=== PATIENT | male | born 1950 | race Caucasian/White ===

== ENCOUNTER 2016-08-19 10:12 | Inpatient (IN) | payer MEDICARE, BC ==
[2016-08-19] VITALS (13 sets, daily range): BP systolic 126–180; BP diastolic 59–95; PULSE 65–101; RESP 16–22; TEMP 97.3–97.9; O2SAT 93–100
[~2016-08-19 10:12] MED LIST: AMBI10TA PO; ATOR20TA42 PO; CARV3.125 PO; COUM5TAB PO; LASI20TA PO; LISI2.5T55 PO; SPIR25 PO; TAB-TAB PO
[2016-08-19] MEDS ORDERED: SODIUM CHLORIDE 0.9% FLUSH 10 ML FLUSH IVF PRN (10:30)
[2016-08-19] MEDS ORDERED: CARV25TA PO (10:38)
[2016-08-19] MEDS ORDERED: FURO1TAB62 PO ×2 (10:38)
[2016-08-19] MEDS ORDERED: COUM5TAB PO (10:38)
[2016-08-19] MEDS ORDERED: ATOR20TA15 PO (10:38)
[2016-08-19] MEDS ORDERED: AMBI10TA PO (10:38)
[2016-08-19] MEDS ORDERED: COUM2.5T PO (10:38)
--- NOTE | 2016-08-19 10:52 | PD ---
HPI Chief Complaint: Chest Pain Time Seen by Provider: 10:27 Travel History International Travel<30 days: No Contact w/Intl Traveler<30days: No Traveled to known affect area: No History of Present Illness HPI 66-year-old male came to the emergency room with history of his AICD firing yesterday. Patient says that he was laying on the bed watching television when he suddenly felt lightheaded and like he was going to pass out. Within moments he felt a jolt in his chest and realized that he was shocked. His last episode when shock was delivered was 3-4 years ago. Today he is feeling okay but wanted to come in and be checked. Vital signs were relatively stable. No current history of chest pain. He has a cipher expert and he last saw him June of this year. [facility] Past Medical History Narrative Medical List of his past medical, surgical, social and family history was reviewed from the nursing note. Asthma: No Heart Rhythm Problems: No Cancer: No Cardiac Catheterization: Yes (LAST WEEK) Cardiovascular Problems: Yes High Cholesterol: Yes Chest Pain: No Congestive Heart Failure: No COPD: No Endocrine: No Genitourinary: No Hypertension: Yes Immune Disorder: No Inguinal Hernia: Yes (LARGE RIGHT INGUINAL HERNIA) Musculoskeletal: No Neurologic: No Psychiatric: No Reproductive: No Respiratory: Yes Sleep Apnea: No Past Surgical History [facility] Coronary Artery Bypass Graft: Yes Coronary Stent: Yes Social History Alcohol Use: No Tobacco Use: No Substance Use: No Allergies-Medications (Allergen,Severity, Reaction): Coded Allergies: No Known Allergies (Verified , 08/19/16) Comments No known drug allergies. Reported Meds & Prescriptions Reported Meds & Active Scripts Active Reported Coumadin (Warfarin) 5 Mg Tab 5 Mg PO DAILY Coumadin (Warfarin) 2.5 Mg Tab 2.5 Mg PO DAILY Lasix (Furosemide) 20 Mg Tab 10 Mg PO DAILY Lasix (Furosemide) 20 Mg Tab 20 Mg PO 2XWEEK Carvedilol 25 Mg Tab 25 Mg PO BID Atorvastatin (Atorvastatin Calcium) 20 Mg Tab 20 Mg PO BID Narrative Medication List of his home medications reviewed from the nursing note. Review of Systems Except as stated in HPI: all other systems reviewed are Neg Physical Exam Narrative GENERAL: Awake, alert, no obvious distress SKIN: Focused skin assessment warm/dry. HEAD: Atraumatic. Normocephalic. EYES: Pupils equal and round. No scleral icterus. No injection or drainage. ENT: No nasal bleeding or discharge. Mucous membranes pink and moist. NECK: Trachea midline. No JVD. CARDIOVASCULAR: Regular rate and rhythm. No murmur appreciated. RESPIRATORY: No accessory muscle use. Clear to auscultation. Breath sounds equal bilaterally. GASTROINTESTINAL: Abdomen soft, non-tender, nondistended. Hepatic and splenic margins not palpable. MUSCULOSKELETAL: No obvious deformities. No clubbing. No cyanosis. No edema. NEUROLOGICAL: Awake and alert. No obvious cranial nerve deficits. Motor grossly within normal limits. Normal speech. PSYCHIATRIC: Appropriate mood and affect; insight and judgment normal. Data Data Last Documented VS Vital Signs Date Time Temp Pulse Resp B/P Pulse Ox O2 Delivery O2 Flow Rate FiO2 08/19/16 10:39 145/75 141/71 08/19/16 10:28 95 16 97 Room Air 08/19/16 10:14 97.7 Orders Electrocardiogram (08/19/16 10:27) Basic Metabolic Panel (Bmp) (08/19/16 10:27) B-Type Natriuretic Peptide (08/19/16 10:27) Ckmb (Isoenzyme) Profile (08/19/16 10:27) Complete Blood Count With Diff (08/19/16 10:27) Magnesium (Mg) (08/19/16 10:27) Prothrombin Time / Inr (Pt) (08/19/16 10:27) Act Partial Throm Time (Ptt) (08/19/16 10:27) Troponin I (08/19/16 10:27) Chest, Single Ap (08/19/16 10:27) Ecg Monitoring (08/19/16 10:27) Bilateral Bp Monitoring (08/19/16 10:27) Iv Access Insert/Monitor (08/19/16 10:27) Oximetry (08/19/16 10:27) Oxygen Administration (08/19/16 10:27) Sodium Chloride 0.9% Flush (Ns Flush) (08/19/16 10:30) CKMB (08/19/16 10:38) CKMB% (08/19/16 10:38) Furosemide Inj (Lasix Inj) (08/19/16 12:45) Admit Order (Ed Use Only) (08/19/16 13:17) Consult Cardiology (08/19/16 ) Labs Laboratory Tests Test 08/19/16 10:38 White Blood Count 11.6 TH/MM3 Red Blood Count 4.98 MIL/MM3 Hemoglobin 14.1 GM/DL Hematocrit 43.0 % Mean Corpuscular Volume 86.2 FL Mean Corpuscular Hemoglobin 28.3 PG Mean Corpuscular Hemoglobin 32.9 % Concent Red Cell Distribution Width 15.9 % Platelet Count 207 TH/MM3 Mean Platelet Volume 9.9 FL Neutrophils (%) (Auto) 70.4 % Lymphocytes (%) (Auto) 16.6 % Monocytes (%) (Auto) 8.8 % Eosinophils (%) (Auto) 3.3 % Basophils (%) (Auto) 0.9 % Neutrophils # (Auto) 8.1 TH/MM3 Lymphocytes # (Auto) 1.9 TH/MM3 Monocytes # (Auto) 1.0 TH/MM3 Eosinophils # (Auto) 0.4 TH/MM3 Basophils # (Auto) 0.1 TH/MM3 CBC Comment DIFF FINAL Differential Comment Prothrombin Time 28.7 SEC Prothromb Time International 2.5 RATIO Ratio Activated Partial 45.0 SEC Thromboplast Time Sodium Level 142 MEQ/L Potassium Level 4.6 MEQ/L Chloride Level 108 MEQ/L Carbon Dioxide Level 25.4 MEQ/L Anion Gap 9 MEQ/L Blood Urea Nitrogen 29 MG/DL Creatinine 1.38 MG/DL Estimat Glomerular Filtration 51 ML/MIN Rate Random Glucose 122 MG/DL Calcium Level 9.1 MG/DL Magnesium Level 2.3 MG/DL Total Creatine Kinase 112 U/L Creatine Kinase MB 1.7 NG/ML Troponin I 0.16 NG/ML B-Type Natriuretic Peptide 289 PG/ML MDM Medical Decision Making Medical Screen Exam Complete: Yes Emergency Medical Condition: Yes Medical Record Reviewed: Yes Interpretation(s) Twelve-lead EKG was reviewed by me. Normal sinus rhythm, left axis deviation, left bundle branch block known from 2010. Heart rate of 93 bpm. Differential Diagnosis Ventricular tachycardia, V. fib, non-STEMI, electrolyte abnormality Narrative Course 1 PM I had asked the [employer] rep to come and interrogate the device. He was here and checked and told me that the AICD fired since patient was in VF. He tech stated his report to the cipher expert's and put a copy in the chart as well. He said the fluid level has been building up since August 03. I discussed this case with patient's cipher expert Dr. Miller and he wanted the patient to be admitted for observation and he would consult. He wanted the patient to get a dose of Lasix IV. I let him know about patient's BUN/ creatinine as well. Patient was admitted to the hospitalist. I've explained all this to the patient and he is agreeable to the admission. Patient's troponin level was mildly elevated which could be from the AICD firing. This will of course need to be repeated in few hours. Procedures EKG Prior to Arrival: No Physician Communication Physician Communication Dr. Miller Diagnosis Primary Impression: AICD discharge Additional Impressions: VF (ventricular fibrillation) Elevated troponin I level Admitting Information Admitting Physician Requests: Observation Scripts Sotalol (Sorine)80 Mg Tab80 Mg PO Q12HR #60 TAB Ref 0 Prov:Arianne Salgado MD 08/20/16 Joby Guerrero MD Aug 19, 2016 10:52
[2016-08-19 10:57] LABS: AUTOMATED NEUTROPHIL # 8.1 TH/MM3 (1.8-7.7); BASOPHIL # 0.1 TH/MM3 (0-0.2); BASOPHIL % 0.9 % (0.0-2.0); EOSINOPHIL # 0.4 TH/MM3 (0-0.4); EOSINOPHIL % 3.3 % (0.0-4.0); HEMO FLAGS DIFF FINAL; LYMPH % 16.6 % (9.0-44.0); LYMPHOCYTE # 1.9 TH/MM3 (1.0-4.8); MEAN CELL VOLUME 86.2 FL (80.0-100.0); MEAN CORPUSCULAR HEMOGLOBIN 28.3 PG (27.0-34.0); MEAN CORPUSCULAR HGB CONC 32.9 % (32.0-36.0); MONO % 8.8 % (0.0-8.0); NEUT % 70.4 % (16.0-70.0); PLATELET COUNT 207 TH/MM3 (150-450); RED BLOOD COUNT 4.98 MIL/MM3 (4.50-5.90); RED CELL DISTRIBUTION WIDTH 15.9 % (11.6-17.2); WHITE BLOOD COUNT 11.6 TH/MM3 (4.0-11.0)
[2016-08-19 11:06] LABS: INTERNATIONAL NORMALIZED RATIO 2.5 RATIO; PROTHROMBIN TIME - PATIENT 28.7 SEC (9.8-11.6)
[2016-08-19 11:16] LABS: ANION GAP 9 MEQ/L (5-15); BICARBONATE 25.4 MEQ/L (21.0-32.0); BLOOD UREA NITROGEN 29 MG/DL (7-18); CHLORIDE 108 MEQ/L (98-107); CREATINE KINASE 112 U/L (39-308); GLOMERULAR FILTRATION RATE 51 ML/MIN (>89); MAGNESIUM 2.3 MG/DL (1.5-2.5); SODIUM (NA) 142 MEQ/L (136-145)
[2016-08-19 11:24] LABS: POTASSIUM 4.6 MEQ/L (3.5-5.1)
[2016-08-19 11:39] LABS: CKMB 1.7 NG/ML (0.5-3.6)
--- NOTE | 2016-08-19 11:44 | RADRPT ---
EXAM DATE/TIME: 08/19/2016 10:32 [facility] COMPARISON: CHEST SINGLE AP, August 30, 2010, 11:19. INDICATIONS : Pt states his defibrillator went off this morning. Pt denies any pains or SOB at this time. MEDICAL HISTORY : Cardiovascular disease. SURGICAL HISTORY : Pacemaker. ENCOUNTER: Initial ACUITY: 1 day PAIN SCORE: 0/10 LOCATION: Bilateral chest FINDINGS: A single view of the chest demonstrates the lungs to be symmetrically aerated without evidence of mas s, infiltrate or effusion. The heart size is normal. Dual-lead defibrillator, unchanged prior exam.. Osseous structures are intact. CONCLUSION: No acute disease. Arianna Mills MD on August 19, 2016 at 11:41 Board Certified Radiologist. This report was verified electronically.
[2016-08-19] MEDS ORDERED: FUROSEMIDE 40 MG/4 ML VIAL IV PUSH ONE (12:45)
--- NOTE | 2016-08-19 14:21 | HHI.HP ---
[facility] Service [facility] Primary Care Physician Non-Staff Admission Diagnosis AICD fired, elevated troponin, CHF Diagnoses: Chief Complaint: Abnormal rhythm with AICD firing Travel History International Travel<30 Days: No Contact w/Intl Traveler <30 Da: No Traveled to Known Affected Are: No History of Present Illness This is a 66-year-old male with past nuchal history of AL, cardiomyopathy status post AICD placement, history of paroxysmal ventricular tachycardia, history of CVA, congestive heart failure, coronary disease who presented with abnormal rhythm of his heart. Patient stated that yesterday afternoon he felt that he had an abnormal rhythm of his heart. Patient thought he could sleep it off but at 7:10 PM he felt a shock. Patient then stated that he just laid in bed hoping that would go away but he continued to have the abnormal filling in his heart so he went to the emergency department. Patient denies any chest pain , shortness of breathing, palpitation, or heaviness or dizziness. Dr. Pelon Sheriff patient's verse writer was notified by the emergency medicine physician in which they recommended giving a dose of Lasix. Patient AICD was interrogated and rhythm was thought due to ventricular fibrillation. At the moment patient stated he does not feel any abnormal rhythms. Review of Systems Constitutional: DENIES: Diaphoretic episodes, Fatigue, Fever, Weight gain, Weight loss, Chills, Dizziness, Change in appetite, Night Sweats Endocrine: DENIES: Heat/cold intolerance, Polydipsia, Polyuria, Polyphagia Eyes: DENIES: Blurred vision, Diplopia, Eye inflammation, Eye pain, Vision loss , Photosensitivity, Double Vision Ears, nose, mouth, throat: DENIES: Tinnitus, Hearing loss, Vertigo, Nasal discharge, Oral lesions, Throat pain, Hoarseness, Ear Pain, Running Nose, Epistaxis, Sinus Pain, Toothache, Odynophagia Respiratory: DENIES: Apneas, Cough, Snoring, Wheezing, Hemoptysis, Sputum production, Shortness of breath Cardiovascular: DENIES: Chest pain, Palpitations, Syncope, Dyspnea on Exertion , PND, Lower Extremity Edema, Orthopnea, Claudication Gastrointestinal: DENIES: Abdominal pain, Black stools, Bloody stools, Constipation, Diarrhea, Nausea, Vomiting, Difficulty Swallowing, Anorexia Genitourinary: DENIES: Sexual dysfunction, Urinary frequency, Urinary incontinence, Urgency, Hematuria, Dysuria, Nocturia, Penile Discharge, Testicular Pain, Testicular Swelling Musculoskeletal: DENIES: Joint pain, Muscle aches, Stiffness, Joint Swelling, Back pain, Neck pain Integumentary: DENIES: Abnormal pigmentation, Nail changes, Pruritus, Rash Hematologic/lymphatic: DENIES: Bruising, Lymphadenopathy Immunologic/allergic: DENIES: Eczema, Urticaria Neurologic: DENIES: Abnormal gait, Headache, Localized weakness, Paresthesias, Seizures, Speech Problems, Tremor, Poor Balance Psychiatric: DENIES: Anxiety, Confusion, Mood changes, Depression, Hallucinations, Agitation, Suicidal Ideation, Homicidal Ideation, Delusions Past Family Social History Past Medical History Paroxysmal ventricular tachycardia. hx myocardial infarction. Cerebral arterial occlusion with cerebral infarction. Acute systolic heart failure. Paroxysmal ventricular tachycardia. Primary cardiomyopathy. Congestive heart failure. Hypertension. Unspecified sleep apnea. Pure hypercholesterolemia. Coronary atherosclerosis of [place] coronary vessel. Past Surgical History Implant/replace cardiac defibrillator TOT. Reported Medications Current Medications Sodium Chloride (NS Flush) 2 ml UNSCH PRN IVF FLUSH AFTER USING IV ACCESS Last administered on 08/19/16 13:17; Start 08/19/16 at 10:30; Stop 08/19/16 at 14:27; Status DC Furosemide (Lasix Inj) 40 mg ONCE ONCE IV PUSH Last administered on 08/19/16 13:16; Start 08/19/16 at 12:45; Stop 08/19/16 at 12:46; Status DC Sodium Chloride (NS Flush) 2 ml UNSCH PRN IV FLUSH FLUSH AFTER USING IV ACCESS ; Start 08/19/16 at 14:30 Sodium Chloride (NS Flush) 2 ml BID IV FLUSH ; Start 08/19/16 at 21:00 Ondansetron HCl (Zofran Inj) 4 mg Q6H PRN IVP NAUSEA OR VOMITING; Start at 14:30 Naloxone HCl (Narcan Inj) 0.4 mg UNSCH PRN IV SEE LABEL COMMENTS; Start at 14:30 Atorvastatin Calcium (Lipitor) 20 mg BID PO ; Start 08/19/16 at 21:00 Carvedilol (Coreg) 25 mg BID PO ; Start 08/19/16 at 21:00 Furosemide (Lasix) 10 mg DAILY PO ; Start 08/20/16 at 09:00 Furosemide (Lasix) 20 mg 2XWEEK PO ; Start 08/19/16 at 14:30; Status UNV Warfarin Sodium (Coumadin) 2.5 mg DAILY PO ; Start 08/20/16 at 09:00; Status UNV Warfarin Sodium (Coumadin) 5 mg DAILY PO ; Start 08/20/16 at 09:00; Status UNV Allergies: Coded Allergies: No Known Allergies (Verified , 08/19/16) Active Ordered Medications Reported Meds & Active Scripts Active Reported Coumadin (Warfarin) 5 Mg Tab 5 Mg PO DAILY Coumadin (Warfarin) 2.5 Mg Tab 2.5 Mg PO DAILY Lasix (Furosemide) 20 Mg Tab 10 Mg PO DAILY Lasix (Furosemide) 20 Mg Tab 20 Mg PO 2XWEEK Carvedilol 25 Mg Tab 25 Mg PO BID Atorvastatin (Atorvastatin Calcium) 20 Mg Tab 20 Mg PO BID Family History Extensive family history of cardiovascular disease. Social History Patient denies and tobacco, alcohol, or illicit drug use. Patient stated that he was to home by himself. Physical Exam Vital Signs Vital Signs Date Time Temp Pulse Resp B/P Pulse Ox O2 Delivery O2 Flow Rate FiO2 08/19/16 10:39 145/75 141/71 08/19/16 10:28 95 16 145/75 97 Room Air 08/19/16 10:14 97.7 101 22 180/90 97 Physical Exam GENERAL: This is a well-nourished, well-developed patient, in no apparent distress. SKIN: No rashes, ecchymoses or lesions. Cool and dry. HEAD: Atraumatic. Normocephalic. No temporal or scalp tenderness. EYES: Pupils equal round and reactive. Extraocular motions intact. No scleral icterus. No injection or drainage. ENT: Nose without bleeding, purulent drainage or septal hematoma. Throat without erythema, tonsillar hypertrophy or exudate. Uvula midline. Airway patent. NECK: Trachea midline. No JVD or lymphadenopathy. Supple, nontender, no meningeal signs. CARDIOVASCULAR: Regular rate and rhythm without murmurs, gallops, or rubs. ACID placed RESPIRATORY: Clear to auscultation. Breath sounds equal bilaterally. No wheezes , rales, or rhonchi. GASTROINTESTINAL: Abdomen soft, non-tender, nondistended. No hepato-splenomegaly , or palpable masses. No guarding. MUSCULOSKELETAL: Extremities without clubbing, cyanosis. Very trace lower extremity edema. No joint tenderness, effusion, or edema noted. No calf tenderness. Negative Homans sign bilaterally. NEUROLOGICAL: Awake and alert. Cranial nerves II through XII intact. Motor and sensory grossly within normal limits. Five out of 5 muscle strength in all muscle groups. Normal speech. Laboratory Laboratory Tests Test 08/19/16 10:38 White Blood Count 11.6 Red Blood Count 4.98 Hemoglobin 14.1 Hematocrit 43.0 Mean Corpuscular Volume 86.2 Mean Corpuscular Hemoglobin 28.3 Mean Corpuscular Hemoglobin 32.9 Concent Red Cell Distribution Width 15.9 Platelet Count 207 Mean Platelet Volume 9.9 Neutrophils (%) (Auto) 70.4 Lymphocytes (%) (Auto) 16.6 Monocytes (%) (Auto) 8.8 Eosinophils (%) (Auto) 3.3 Basophils (%) (Auto) 0.9 Neutrophils # (Auto) 8.1 Lymphocytes # (Auto) 1.9 Monocytes # (Auto) 1.0 Eosinophils # (Auto) 0.4 Basophils # (Auto) 0.1 CBC Comment DIFF FINAL Differential Comment Prothrombin Time 28.7 Prothromb Time International 2.5 Ratio Activated Partial 45.0 Thromboplast Time Sodium Level 142 Potassium Level 4.6 Chloride Level 108 Carbon Dioxide Level 25.4 Anion Gap 9 Blood Urea Nitrogen 29 Creatinine 1.38 Estimat Glomerular Filtration 51 Rate Random Glucose 122 Calcium Level 9.1 Magnesium Level 2.3 Total Creatine Kinase 112 Creatine Kinase MB 1.7 Troponin I 0.16 B-Type Natriuretic Peptide 289 Result Diagram: 08/19/16 1038 08/19/16 1038 Imaging Last Impressions Chest X-Ray 08/19/16 1027 Signed Impressions: Service Date/Time: Friday, August 19, 2016 10:32 - CONCLUSION: No acute disease. rAianna Mills MD Assessment and Plan Assessment and Plan 66-year-old male with a history of cardiomyopathy status post AICD who presented with firing 1 Arrhythmia -Status post AICD firing 1. Interrogated in the ED which suggest patient had ventricular fibrillation. -Dr. Tadeo patient's verse writer already consulted. Recommended 1 dose of Lasix. Patient was given that in the ED. -We'll monitor and see IC over telemetry pending recommendations from verse writer. -Labs review and electrolytes are normal. Cardiomyopathy with EF of 20-25% based on echo done in 2010. -See treatment as above. Dr. Tadeo. Per patient he had a recent echo done already. -Will resume his home medication. Chronic kidney disease -Most likely this is patient's baseline. Last creatinine was in 2010 which was 0.87. -Continue to monitor creatinine and ins and outs. -Avoid nephrotoxins. Coronary artery disease/history of CVA/dyslipidemia/chronic anticoagulation/ history of V. tach -Resume home medication. DVT prophylaxis -Patient on Coumadin and is therapeutic. Discussed Condition With patient Physician Certification 2 Midnight Certification Type: Admission for Inpatient Services Order for Inpatient Services The services are ordered in accordance with Medicare regulations or non- Medicare payer requirements, as applicable. In the case of services not specified as inpatient-only, they are appropriately provided as inpatient services in accordance with the 2-midnight benchmark. Estimated LOS (days): 2 2 days is the estimated time the patient will need to remain in the hospital, assuming treatment plan goals are met and no additional complications. Post-Hospital Plan: Home Arianne Salgado MD Aug 19, 2016 14:21
[2016-08-19] MEDS ORDERED: SODIUM CHLORIDE 0.9% FLUSH 10 ML FLUSH IV FLUSH PRN (14:30)
[2016-08-19] MEDS ORDERED: NALOXONE HCL 0.4 MG/ML AMP IV PRN (14:30)
[2016-08-19] MEDS ORDERED: ONDANSETRON HCL 4 MG/2 ML VIAL IVP PRN (14:30)
[2016-08-19] MEDS ORDERED: WARFARIN SOD 2.5 MG TAB PO SCH (16:00)
[2016-08-19] MEDS ORDERED: hydrALAZINE HCL 20 MG/ML VIAL IV PRN (19:15)
[2016-08-19] MEDS: SODIUM CHLORIDE 0.9% FLUSH 10 ML FLUSH IV FLUSH SCH (20:10)
[2016-08-19] MEDS: CARVEDILOL 12.5 MG TAB PO SCH (20:10)
[2016-08-19] MEDS: ATORVASTATIN 20 MG TAB PO SCH (20:10)
[2016-08-20] VITALS (18 sets, daily range): BP systolic 119–148; BP diastolic 70–74; PULSE 71–96; RESP 16–19; TEMP 97.8–98.4; O2SAT 93–94
[2016-08-20] MEDS ORDERED: FUROSEMIDE 20 MG TAB PO SCH (09:00)
[2016-08-20] MEDS: SODIUM CHLORIDE 0.9% FLUSH 10 ML FLUSH IV FLUSH SCH (09:04)
[2016-08-20] MEDS: ATORVASTATIN 20 MG TAB PO SCH (09:04)
[2016-08-20] MEDS: CARVEDILOL 12.5 MG TAB PO SCH (09:05)
[2016-08-20] MEDS ORDERED: ALLO100T PO (09:13)
[2016-08-20] MEDS ORDERED: LISI-515 PO (09:13)
[2016-08-20] MEDS ORDERED: PNEUMOCOCCAL POLYVALENT INJ 25 MCG/0.5 ML SYR IM ONE (10:00)
--- NOTE | 2016-08-20 10:53 | PD.CONS ---
[facility] Service Cardiology Physicians Consult Requested By ER MD Reason for Consult AICD firing Primary Care Physician Non-Staff History of Present Illness The patient is a 66 year old male known to our practice with non-ischemic CMP and LBBB AICD, ventricular tachycardia, carotid stenosis, atrial fibrillation with history of CVA on coumadin, chronic systolic CHF, HLD, and obesity. The patient was noted palpitations earlier yesterday with sense of increased heart rate. Later, while laying down, received an AICD shock. She denies immediate preceding symptoms of palpitations, CP, SOB or lightheadedness. On device interrogation, he was noted to have increasing Optivol levels since the end of July and episodes of atrial fibrillation. The patient denies change of cardiac symptoms in the past few weeks or months. He denies decreased tolerance to completing ADLs. He has not had any medication changes recently. He only complaint is a very stressful day on Saturday. (Ban Marte) Review of Systems Consitutional: DENIES: Fatigue, Fever, Chills, Weight gain, Weight loss Eyes: DENIES: Amaurosis Fugax, Change in vision HEENT: DENIES: Lightheadedness, Change in hearing Respiratory: DENIES: Cough, Snoring, Shortness of breath, Wheezing, Sputum production Cardiovascular: COMPLAINS OF: Palpitations, Tachycardia, DENIES: Chest pain, Syncope Gastrointestinal: DENIES: Nausea, Vomiting, Change in bowel habits, Reflux, Bloody stools, Melena Genitourinary: DENIES: Urinary incontinence, Difficulty voiding Integumentary: DENIES: Rash Neurologic: DENIES: Tingling or numbness, Memory problems, Poor Balance, Stroke symptoms Musculoskeletal: DENIES: Joint pain, Muscle pain, Limited range of motion, Back pain Psychiatric: DENIES: Anxiety, Depression, Sleep disturbances Hematologic: DENIES: Bruising tendencies, Bleeding tendencies Endocrine: DENIES: Weight gain, Weight loss, Thyroid disease (Ban Marte ) Past Family Social History Allergies: Coded Allergies: No Known Allergies (Verified , 08/19/16) Past Medical History See HPI Past Surgical History AICD 2010 Heart cath 2010 Reported Medications Reported Meds & Active Scripts Active Reported Allopurinol 100 Mg Tab 150 Mg PO DAILY Lisinopril 20 Mg Tab 20 Mg PO BID Coumadin (Warfarin) 5 Mg Tab 5 Mg PO DAILY Coumadin (Warfarin) 2.5 Mg Tab 2.5 Mg PO DAILY Lasix (Furosemide) 20 Mg Tab 10 Mg PO DAILY Lasix (Furosemide) 20 Mg Tab 20 Mg PO 2XWEEK Carvedilol 25 Mg Tab 25 Mg PO BID Atorvastatin (Atorvastatin Calcium) 20 Mg Tab 20 Mg PO BID Active Ordered Medications Current Medications Medications (Trade) Dose Ordered Sig/Leslie Route Start Time Stop Time Status Last Admin (NS Flush) 2 ml UNSCH PRN IV FLUSH 08/19/16 14:30 (NS Flush) 2 ml BID IV FLUSH 08/19/16 21:00 08/20/16 09:04 (Zofran Inj) 4 mg Q6H PRN IVP 08/19/16 14:30 (Narcan Inj) 0.4 mg UNSCH PRN IV 08/19/16 14:30 (Lipitor) 20 mg BID PO 08/19/16 21:00 08/20/16 09:04 (Coreg) 25 mg BID PO 08/19/16 21:00 08/20/16 09:05 (Lasix) 10 mg DAILY PO 08/20/16 09:00 08/20/16 09:05 (Lasix) 20 mg 2XWEEK PO 08/21/16 09:00 (Coumadin) 2.5 mg SuTh@1600 PO 08/19/16 16:00 08/19/16 18:06 (Coumadin) 5 mg MoTuWeFrSa@1600 PO 08/20/16 16:00 (Apresoline Inj) 20 mg Q4H PRN IV 08/19/16 19:15 Family History non contributory Social History Does not drink or smoke (Ban Marte) Physical Exam Vital Signs Vital Signs Date Time Temp Pulse Resp B/P Pulse Ox O2 Delivery O2 Flow Rate FiO2 08/20/16 08:00 77 08/20/16 07:15 98.1 96 17 136/70 93 08/20/16 07:00 83 08/20/16 06:08 75 08/20/16 05:00 72 08/20/16 04:36 78 08/20/16 03:00 73 08/20/16 03:00 98.4 90 19 148/74 94 08/20/16 02:00 71 08/20/16 01:00 73 08/20/16 00:00 73 08/19/16 23:00 97.6 79 19 131/59 94 08/19/16 23:00 75 08/19/16 22:00 70 08/19/16 21:00 65 08/19/16 20:00 71 08/19/16 19:00 80 08/19/16 19:00 97.3 79 19 145/83 96 08/19/16 18:39 97.9 89 18 160/95 100 08/19/16 18:00 80 08/19/16 16:32 87 20 126/60 98 Room Air 08/19/16 16:07 95 08/19/16 16:07 85 20 135/63 95 Room Air 08/19/16 14:55 93 21 08/19/16 10:39 145/75 141/71 Physical Exam GENERAL: Obese, mild -aged male SKIN: Warm and dry. HEAD: Normocephalic. EYES: No scleral icterus. No injection or drainage. NECK: Supple, trachea midline. No JVD or lymphadenopathy. CARDIOVASCULAR: Regular rate and rhythm without murmurs, gallops, or rubs. RESPIRATORY: Breath sounds equal bilaterally. No accessory muscle use. GASTROINTESTINAL: Abdomen soft, non-tender, nondistended. MUSCULOSKELETAL: No cyanosis, or edema. BACK: Nontender without obvious deformity. No CVA tenderness. Laboratory Laboratory Tests Test 08/19/16 08/19/16 08/19/16 10:38 16:40 22:40 White Blood Count 11.6 Red Blood Count 4.98 Hemoglobin 14.1 Hematocrit 43.0 Mean Corpuscular Volume 86.2 Mean Corpuscular Hemoglobin 28.3 Mean Corpuscular Hemoglobin 32.9 Concent Red Cell Distribution Width 15.9 Platelet Count 207 Mean Platelet Volume 9.9 Neutrophils (%) (Auto) 70.4 Lymphocytes (%) (Auto) 16.6 Monocytes (%) (Auto) 8.8 Eosinophils (%) (Auto) 3.3 Basophils (%) (Auto) 0.9 Neutrophils # (Auto) 8.1 Lymphocytes # (Auto) 1.9 Monocytes # (Auto) 1.0 Eosinophils # (Auto) 0.4 Basophils # (Auto) 0.1 CBC Comment DIFF FINAL Differential Comment Prothrombin Time 28.7 Prothromb Time International 2.5 Ratio Activated Partial 45.0 Thromboplast Time Sodium Level 142 Potassium Level 4.6 Chloride Level 108 Carbon Dioxide Level 25.4 Anion Gap 9 Blood Urea Nitrogen 29 Creatinine 1.38 Estimat Glomerular Filtration 51 Rate Random Glucose 122 Calcium Level 9.1 Magnesium Level 2.3 Total Creatine Kinase 112 Creatine Kinase MB 1.7 Troponin I 0.16 0.18 0.16 B-Type Natriuretic Peptide 289 (Ban Marte) Result Diagram: 08/19/16 1038 08/19/16 1038 Imaging Last 72 hours Impressions Chest X-Ray 08/19/16 1027 Signed Impressions: Service Date/Time: Friday, August 19, 2016 10:32 - CONCLUSION: No acute disease. Arianna Mills MD ([place]e) Assessment and Plan Assessment and Plan ASSESSMENT: Appropriate AICD shock for ventricular fibrillation Elevated troponin due to VF, CHF and renal insufficiency. Denies CP or SOB Acute on chronic CHF exacerbation Non-ischemic cardiomyopathy, LBBB and history of VT s/p AICD Atrial fibrillation with history of CVA on coumadin Mild carotid stenosis Obesity Renal insufficiency PLAN: Start Sotalol 80 mg BID Restart home Lisinopril 20 mg BID tonight. Creatine mildly elevated Patient improved after Lasix IV, continue Lasix PO Patient will need to follow up in the office for ischemic workup and repeat device check in 1-2 weeks. Patient seen and evaluated by Dr. Miller. (Ban Marte) Assessment and Plan The exam, history, and the medical decision-making described in the above note were completed with the assistance of the mid-level provider. I reviewed and agree with the findings presented. I attest that I had a [id number] encounter with the patient on the same day, and personally performed and documented my assessment and findings in the medical record. Will plan to d/c on Sotalol which should treat the VF and hopefully lower the defibrillation threshold (Praveen Miller MD) Ban Marte Aug 20, 2016 10:53 Praveen Miller MD Aug 20, 2016 14:31
[2016-08-20] MEDS ORDERED: SOTALOL HCL 80 MG TAB PO SCH (12:00)
--- NOTE | 2016-08-20 14:16 | EKG ---
Date Performed: 08/19/2016 Time Performed: 16:36:56 PTAGE: 66 years EKG: Sinus rhythm WITH SINUS ARRHYTHMIA MARKED LEFT AXIS DEVIATION LEFT BUNDLE BRANCH BLOCK Since previous tracing, no significant change noted ABNORMAL ECG PREVIOUS TRACING : 08/19/2016 10.31 DOCTOR: Jessika Salcedo Interpretating Date/Time 08/20/2016 14:14:46
--- NOTE | 2016-08-20 14:16 | EKG ---
Date Performed: 08/19/2016 Time Performed: 10:31:02 PTAGE: 66 years EKG: Sinus rhythm MARKED LEFT AXIS DEVIATION LEFT BUNDLE BRANCH BLOCK Since previous tracing, no significant change no godwin ABNORMAL ECG PREVIOUS TRACING : 08/31/2010 07.06 DOCTOR: Jessika Salcedo Interpretating Date/Time 08/20/2016 14:14:26
--- NOTE | 2016-08-20 14:34 | HHI.PR ---
Subjective Remarks f/u for AICD firing. patient has no complaints. he stated no firing. Denied any CP, SOB, or palpitation. ready to go home. Objective Vitals Vital Signs Date Time Temp Pulse Resp B/P Pulse Ox O2 Delivery O2 Flow Rate FiO2 08/20/16 14:01 74 08/20/16 13:00 77 08/20/16 12:00 74 08/20/16 11:00 77 08/20/16 11:00 97.8 81 18 119/70 93 08/20/16 10:40 93 21 08/20/16 10:00 88 08/20/16 09:00 92 08/20/16 08:00 77 08/20/16 07:15 98.1 96 17 136/70 93 08/20/16 07:00 83 08/20/16 06:08 75 08/20/16 05:00 72 08/20/16 04:36 78 08/20/16 03:00 73 08/20/16 03:00 98.4 90 19 148/74 94 08/20/16 02:00 71 08/20/16 01:00 73 08/20/16 00:00 73 08/19/16 23:00 97.6 79 19 131/59 94 08/19/16 23:00 75 08/19/16 22:00 70 08/19/16 21:00 65 08/19/16 20:00 71 08/19/16 19:00 80 08/19/16 19:00 97.3 79 19 145/83 96 08/19/16 18:39 97.9 89 18 160/95 100 08/19/16 18:00 80 08/19/16 16:32 87 20 126/60 98 Room Air 08/19/16 16:07 95 08/19/16 16:07 85 20 135/63 95 Room Air 08/19/16 14:55 93 21 I/O 08/19/16 08/19/16 08/19/16 08/20/16 08/20/16 08/20/16 07:00 15:00 23:00 07:00 15:00 23:00 Intake Total 500 ml Balance 500 ml Intake Oral 500 ml # Voids 3 # Bowel Movements 1 Result Diagram: 08/19/16 1038 08/19/16 1038 Objective Remarks GENERAL: in NAD NECK: Supple, trachea midline. No JVD or lymphadenopathy. CARDIOVASCULAR: irregular rate and rhythm without murmurs, gallops, or rubs. RESPIRATORY: Breath sounds equal bilaterally. No accessory muscle use. GASTROINTESTINAL: Abdomen soft, non-tender, nondistended. MUSCULOSKELETAL: No cyanosis, or edema. BACK: Nontender without obvious deformity. No CVA tenderness. Medications and IVs Current Medications Sodium Chloride (NS Flush) 2 ml UNSCH PRN IVF FLUSH AFTER USING IV ACCESS Last administered on 08/19/16 13:17; Start 08/19/16 at 10:30; Stop 08/19/16 at 14:27; Status DC Furosemide (Lasix Inj) 40 mg ONCE ONCE IV PUSH Last administered on 08/19/16 13:16; Start 08/19/16 at 12:45; Stop 08/19/16 at 12:46; Status DC Sodium Chloride (NS Flush) 2 ml UNSCH PRN IV FLUSH FLUSH AFTER USING IV ACCESS ; Start 08/19/16 at 14:30 Sodium Chloride (NS Flush) 2 ml BID IV FLUSH Last administered on 08/20/16 09: 04; Start 08/19/16 at 21:00 Ondansetron HCl (Zofran Inj) 4 mg Q6H PRN IVP NAUSEA OR VOMITING; Start at 14:30 Naloxone HCl (Narcan Inj) 0.4 mg UNSCH PRN IV SEE LABEL COMMENTS; Start at 14:30 Atorvastatin Calcium (Lipitor) 20 mg BID PO Last administered on 08/20/16 09: 04; Start 08/19/16 at 21:00 Carvedilol (Coreg) 25 mg BID PO Last administered on 08/20/16 09:05; Start 08/19/16 at 21:00 Furosemide (Lasix) 10 mg DAILY PO Last administered on 08/20/16 09:05; Start 08/20/16 at 09:00 Furosemide (Lasix) 20 mg 2XWEEK PO ; Start 08/21/16 at 09:00 Warfarin Sodium (Coumadin) 2.5 mg SuTh@1600 PO Last administered on 08/19/16 18 :06; Start 08/19/16 at 16:00 Warfarin Sodium (Coumadin) 5 mg MoTuWeFrSa@1600 PO ; Start 08/20/16 at 16:00 Hydralazine HCl (Apresoline Inj) 20 mg Q4H PRN IV SBP>160, DBP>100; Start at 19:15 Pneumococcal Polyvalent Vaccine (Pneumovax-23 Inj) 25 mcg ONCE ONCE IM Last administered on 08/20/16 12:08; Start 08/20/16 at 10:00; Stop 08/20/16 at 10:01 ; Status DC Sotalol HCl (Betapace) 80 mg Q12HR PO Last administered on 08/20/16 12:08; Start 08/20/16 at 12:00 Lisinopril (Prinivil) 20 mg Q12HR PO ; Start 08/20/16 at 21:00 A/P Assessment and Plan 66-year-old male with a history of cardiomyopathy status post AICD who presented with firing 1 Arrhythmia -Status post AICD firing 1. Interrogated in the ED which suggest patient had ventricular fibrillation. -Dr. Tadeo patient's public health microbiologist ff. Recommended 1 dose of Lasix. Patient was given that in the ED. -continue with home lasix and sotalol was started. will need monitor. Cardiomyopathy with EF of 20-25% based on echo done in 2010. -continue home medication. -lisinopril added today. Chronic kidney disease -Most likely this is patient's baseline. Last creatinine was in 2010 which was 0.87. -Continue to monitor creatinine and ins and outs. -Avoid nephrotoxins. Coronary artery disease/history of CVA/dyslipidemia/chronic anticoagulation/ history of V. tach continue home medication. DVT prophylaxis -Patient on Coumadin and is therapeutic. Discharge Planning patient needs monitoring while on sotalol. Arianne Salgado MD Aug 20, 2016 14:34
[2016-08-20] MEDS ORDERED: SOTA80 PO (15:54)
--- NOTE | 2016-08-20 15:54 | HHI.DCPOC ---
Discharge Care Plan Diagnosis: (1) AICD discharge (2) VF (ventricular fibrillation) Goals to Promote Your Health * To prevent worsening of your condition and complications * To maintain your health at the optimal level Directions to Meet Your Goals Take your medications as prescribed Follow your dietary instruction Follow activity as directed Keep your appointments as scheduled Take your immunizations and boosters as scheduled If your symptoms worsen call your PCP, if no PCP go to Urgent Care Center or Emergency Room Smoking is Dangerous to Your Health. Avoid second hand smoke Call the 24-hour hour crisis hotline for domestic abuse at Arianne Salgado MD Aug 20, 2016 15:54
--- NOTE | 2016-08-20 15:55 | HHI.DS ---
Discharge Summary Admission Date Aug 19, 2016 at 14:21 Discharge Date: Aug 20, 2016 Admitting Diagnosis AICD fired, elevated troponin, CHF (1) VF (ventricular fibrillation) ICD Code: I49.01 Diagnosis: Principal (2) Elevated troponin I level ICD Code: R74.8 Diagnosis: Principal (3) AICD discharge ICD Code: Z45.02 Diagnosis: Principal Procedures none Brief History - From Admission This is a 66-year-old male with past nuchal history of [place], cardiomyopathy status post AICD placement, history of paroxysmal ventricular tachycardia, history of CVA, congestive heart failure, coronary disease who presented with abnormal rhythm of his heart. Patient stated that yesterday afternoon he felt that he had an abnormal rhythm of his heart. Patient thought he could sleep it off but at 7:10 PM he felt a shock. Patient then stated that he just laid in bed hoping that would go away but he continued to have the abnormal filling in his heart so he went to the emergency department. Patient denies any chest pain , shortness of breathing, palpitation, or heaviness or dizziness. Dr. Pelon Sheriff patient's tankroom tender was notified by the emergency medicine physician in which they recommended giving a dose of Lasix. Patient AICD was interrogated and rhythm was thought due to ventricular fibrillation. At the moment patient stated he does not feel any abnormal rhythms. CBC/BMP: 08/19/16 1038 08/19/16 1038 Significant Findings Laboratory Tests Test 08/19/16 08/19/16 08/19/16 10:38 16:40 22:40 White Blood Count 11.6 TH/MM3 (4.0-11.0) Neutrophils (%) (Auto) 70.4 % (16.0-70.0) Monocytes (%) (Auto) 8.8 % (0.0-8.0) Neutrophils # (Auto) 8.1 TH/MM3 (1.8-7.7) Monocytes # (Auto) 1.0 TH/MM3 (0-0.9) Prothrombin Time 28.7 SEC (9.8-11.6) Activated Partial 45.0 SEC Thromboplast Time (24.3-30.1) Chloride Level 108 MEQ/L (98-107) Blood Urea Nitrogen 29 MG/DL (7-18) Creatinine 1.38 MG/DL (0.60-1.30) Estimat Glomerular Filtration 51 ML/MIN (>89) Rate Random Glucose 122 MG/DL (74-106) Troponin I 0.16 NG/ML 0.18 NG/ML 0.16 NG/ML (0.02-0.05) (0.02-0.05) (0.02-0.05) B-Type Natriuretic Peptide 289 PG/ML (0-100) Imaging Last Impressions Chest X-Ray 08/19/16 1027 Signed Impressions: Service Date/Time: Friday, August 19, 2016 10:32 - CONCLUSION: No acute disease. Arianna Mills MD PE at Discharge GENERAL: in NAD NECK: Supple, trachea midline. No JVD or lymphadenopathy. CARDIOVASCULAR: irregular rate and rhythm without murmurs, gallops, or rubs. RESPIRATORY: Breath sounds equal bilaterally. No accessory muscle use. GASTROINTESTINAL: Abdomen soft, non-tender, nondistended. MUSCULOSKELETAL: No cyanosis, or edema. BACK: Nontender without obvious deformity. No CVA tenderness. Hospital Course 66-year-old male with a history of cardiomyopathy status post AICD who presented with firing 1 Arrhythmia -Status post AICD firing 1. Interrogated in the ED which suggest patient had ventricular fibrillation. -Dr. Tadeo patient's tankroom tender ff. Recommended 1 dose of Lasix. Patient was given that in the ED. -continue with home lasix and sotalol was started. did well on sotalol and cleared for discharge by tankroom tender. Cardiomyopathy with EF of 20-25% based on echo done in 2010. -continue home medication. -lisinopril added. Chronic kidney disease -Most likely this is patient's baseline. Last creatinine was in 2010 which was 0.87. -Continue to monitor creatinine and ins and outs. -Avoid nephrotoxins. Coronary artery disease/history of CVA/dyslipidemia/chronic anticoagulation/ history of V. tach continue home medication. Pt Condition on Discharge: Good Discharge Disposition: Discharge Home Discharge Time: <= 30 minutes Discharge Instructions DIET: Follow Instructions for: Heart Healthy Diet Activities you can perform: Regular-No Restrictions Follow up Referrals: Cardiology - 1 Week PCP Follow-up - 1 Week New Medications: Sotalol (Sorine) 80 Mg Tab 80 MG PO Q12HR abnormal rhythm #60 Ref 0 TAB Continued Medications: Allopurinol (Allopurinol) 100 Mg Tab 150 MG PO DAILY Gout #30 Ref 0 TAB Atorvastatin (Atorvastatin) 20 Mg Tab 20 MG PO BID Cholesterol Management #0 Ref 0 TAB Carvedilol (Carvedilol) 25 Mg Tab 25 MG PO BID #0 Ref 0 TAB Furosemide (Lasix) 20 Mg Tab 20 MG PO 2XWEEK #60 Ref 0 TAB Furosemide (Lasix) 20 Mg Tab 10 MG PO DAILY #60 Ref 0 TAB Lisinopril (Lisinopril) 20 Mg Tab 20 MG PO BID #30 Ref 0 TAB Warfarin (Coumadin) 2.5 Mg Tab 2.5 MG PO DAILY Prevent Blood Clot #0 Ref 0 TAB Warfarin (Coumadin) 5 Mg Tab 5 MG PO DAILY Blood Clot Prevention #0 Ref 0 TAB Arianne Salgado MD Aug 20, 2016 15:55
[2016-08-20] MEDS ORDERED: WARFARIN SOD 5 MG TAB PO SCH (16:00)
[2016-08-20] MEDS ORDERED: LISINOPRIL 20 MG TAB PO SCH (21:00)
[2016-08-21] MEDS ORDERED: FUROSEMIDE 20 MG TAB PO SCH (09:00)
== END 2016-08-20 17:03 | disposition home or self-care (01) | DRG 308 ==
LOC: NEPC 10:12 → NEDA 13:20 → OBSVTOIN 14:21 → HCIN 18:34
PROVIDERS: ADMIT Family Medicine; ATTEND Family Medicine
PROC: 4B02XTZ Measurement of Cardiac Defibrillator, External Approach (ICD-10-PCS; principal; 2016-08-19)
DX: I49.01 Ventricular fibrillation (principal); I50.23 Acute on chronic systolic (congestive) heart failure; I42.9 Cardiomyopathy, unspecified; I65.29 Occlusion and stenosis of unspecified carotid artery; I25.2 Old myocardial infarction; R74.8 Abnormal levels of other serum enzymes; Z95.810 Presence of automatic (implantable) cardiac defibrillator; Z86.73 Personal history of transient ischemic attack (TIA), and cerebral infarction without residual deficits; I25.10 Atherosclerotic heart disease of native coronary artery without angina pectoris; E78.00 Pure hypercholesterolemia, unspecified; G47.30 Sleep apnea, unspecified; Z79.01 Long term (current) use of anticoagulants; I12.9 Hypertensive chronic kidney disease with stage 1 through stage 4 chronic kidney disease, or unspecified chronic kidney disease; N18.9 Chronic kidney disease, unspecified; Z23 Encounter for immunization; I48.91 Unspecified atrial fibrillation; E66.9 Obesity, unspecified
CPT/HCPCS: 71010; 80048; 82550; 82552; 83735; 83880; 84484; 85025; 85610; 85730; 90732; 93005; 96374; J1940